=== PATIENT | male | born 1985 | race Caucasian/White ===

== ENCOUNTER → 2022-04-08 12:50 | Outpatient (BNVA) | payer OTHER, SELFPAY | PROVIDERS: Family Provider Family Medicine; PCP Family Medicine; Referring Provider Family Medicine; Visit Provider Internal Medicine | DX: L40.9 Psoriasis, unspecified (principal); R63.4 Abnormal weight loss; R53.83 Other fatigue | CPT/HCPCS: 36415; 72202; 73120; 82533; 82550; 84155; 84165; 84182; 85651; 86140; 86235; 86618; 86666; 86704; 86757; 86803; 87340 ==

== ENCOUNTER → 2022-05-28 14:22 | Outpatient (BNVA) | payer OTHER, SELFPAY | PROVIDERS: Family Provider Family Medicine; PCP Family Medicine; Referring Provider Internal Medicine; Visit Provider Internal Medicine | DX: E27.40 Unspecified adrenocortical insufficiency (principal); R53.83 Other fatigue | CPT/HCPCS: 36415; 82024 ==

== ENCOUNTER → 2023-06-05 11:04 | Day surgery (SDC) | payer OTHER, SELFPAY ==
[2023-06-05 11:10] VITALS: BP 130/77; PULSE 67; RESP 18; TEMP 36.7; O2SAT 100
[2023-06-05] MEDS: cosyntropin 0.25 mg SDV IVP (11:23)
[2023-06-05 12:01] LABS: Cosyntropin Baseline 8.51 mcg/dL
[2023-06-05 12:30] LABS: Alanine Aminotransferase 22 U/L (0-41); Albumin Level 5.1 g/dL (3.5-5.2); Alkaline Phosphatase 102 U/L (40-130); Anion Gap 13.2 (5-19); Aspartate Amino Transferase 21 U/L (0-40); Blood Urea Nitrogen 10 mg/dL (6-20); Calcium 9.7 mg/dL (8.5-10.5); Carbon Dioxide 30 mmol/L (22-29); Chloride 102 mmol/L (98-107); Chol HDL Ratio 3.34 mg/dL (1.0-5.00); Cholesterol 177 mg/dL (0-200); Globulin 2.6 g/dL (1.3-4.6); Glomerular Filtration Rate 126.2 mL/min (90-130); Glucose 66 mg/dL (65-115); HDL Cholesterol 53 mg/dL (60-100); LDL Cholesterol Calculated 94 mg/dL (50-129); LDL HDL Ratio 1.77 RATIO (0.00-3.22); Lipase 23 U/L (13-60); Osmolality Calculated 289 mOsm/kg (285-295); Potassium 4.2 mmol/L (3.5-5.1); Sodium 141 mmol/L (136-145); Thyroid Stimulating Hormone 1.42 uIU/mL (0.27-4.20); Total Bilirubin 0.2 mg/dL (0.15-1.2); Total Protein 7.7 g/dL (6.6-8.7); Triglycerides 152 mg/dL (0-150)
[2023-06-05 12:31] LABS: Free T4 Free Thyroxine 1.21 ng/dL (0.82-1.77)
[2023-06-05 12:36] LABS: Estmated Average Glucose 100; Hemoglobin A1C 5.1 % (4.0-6.0)
[2023-06-05 12:39] LABS: Cosyntropin 30 Minute 21.26 mcg/dL
[2023-06-05 13:08] LABS: Creatinine Urine, Random 20 mg/dL (39-259); Microalbumin Random Urine 1 ug/dL (0-20)
[2023-06-05 13:09] LABS: Microalbum Creatinine Ratio Ur 50 mg/dL (0-20)
[2023-06-05 13:15] LABS: Cosyntropin 1 Hour 24.59 mcg/dL
== END ==
PROVIDERS: PCP Family Medicine; Visit Provider Internal Medicine
DX: E27.40 Unspecified adrenocortical insufficiency (principal); E27.49 Other adrenocortical insufficiency; R53.83 Other fatigue; R63.4 Abnormal weight loss
CPT/HCPCS: 36415; 80053; 80061; 82044; 82533; 83036; 83690; 84439; 84443; 96374; J0834